=== PATIENT | male | born 1970 | race African-American/Black ===

== ENCOUNTER 2016-11-30 05:20 | Emergency (ER) | payer SELFPAY ==
[~2016-11-30] VITALS: Ht 152.4 cm; Wt 48.0 kg
[~2016-11-30 05:20] MED LIST: ATARAX,VISTARIL25 MG PO; DOXYCYCLINE HY100 MG PO; XANAX0.5 MG PO; ZOLOFT25 MG PO
[2016-11-30 06:48] LABS: EOSINOPHIL (%) 2.4 % (0-5); EOSINOPHIL COUNT 0.1 K/uL (0-0.3); HEMATOCRIT 44.4 % (38.0-50.0); INSTRUMENT ABS NEUTROPHIL CT 1.2 K/uL; MCH 30.4 PG (29.0-34.0); MCHC 33.8 G/DL (30.0-36.0); MCV 90.1 FL (86-99); MEAN PLAT.VOLUME 8.9 uM^3 (9.0-12.4); MONOCYTE COUNT 0.4 K/uL (0-0.8); NEUTROPHIL (%) 31.5 % (45-76); NEUTROPHIL COUNT 1.2 K/uL (1.8-6.4); PLATELET COUNT 220 K/uL (156-360); RBC DIS.WIDTH-CV 12.2 % (11.8-14.6); RBC DIS.WIDTH-SD 40.5 % (39-53); RED BLOOD COUNT 4.93 M/uL (4.00-5.50); WHITE BLOOD COUNT 3.7 K/uL (4.1-10.2)
[2016-11-30 07:29] LABS: ANION GAP 11 MEQ/L (2-14); CHLORIDE 105 MEQ/L (99-109); CREATINE KINASE 258 IU/L (1-294); GFR ESTIMATE (CALCULATED) > 59 mL/min/; GLUCOSE 92 mg/dL (70-99); POTASSIUM 3.9 MEQ/L (3.7-5.4); SAMPLE HEMOLYSIS CHECK 1; SAMPLE ICTERIC CHECK 0; SAMPLE LIPEMIA CHECK 0; SODIUM 143 MEQ/L (136-147); TOTAL CK 258 IU/L (1-294); UREA NITROGEN (BUN) 10 mg/dL (9-23)
[2016-11-30 07:31] LABS: TROP-I INTERPRETATION NEGATIVE; TROPONIN-I < 0.01 ng/mL (0.0-0.30)
[2016-11-30 07:32] LABS: CK-MB 1.1 ng/mL (0.0-4.9)
[2016-11-30 09:27] LABS: AMPHETAMINE NEGATIVE (500 ng/mL); BARBITURATES NEGATIVE (200 ng/mL); BENZODIAZEPINES NEGATIVE (150 ng/mL); COCAINE NEGATIVE (150 ng/mL); INTERNAL CONTROLS VALID? YES; METHADONE NEGATIVE (200 ng/mL); METHAMPHETAMINE NEGATIVE (500 ng/mL); OPIATES (MORPHINE) NEGATIVE (100 ng/mL); OXYCODONE NEGATIVE (100 ng/mL); PHENCYCLIDINE NEGATIVE (25 ng/mL); PROPOXYPHENE NEGATIVE (300 ng/mL); THC CANNABINOIDS NEGATIVE (50 ng/mL); TRICYCLIC ANTIDEPRESSANTS NEGATIVE (300 ng/mL)
[2016-11-30 14:33] VITALS: BP 105/77
== END 2016-11-30 14:34 | disposition home or self-care (01) ==
LOC: EME 05:20
PROVIDERS: Emergency Medicine
DX: F10.129 Alcohol abuse with intoxication, unspecified (principal); F41.9 Anxiety disorder, unspecified; Y90.5 Blood alcohol level of 100-119 mg/100 ml; R42 Dizziness and giddiness
CPT/HCPCS: 70450; 71020; 80048; 82550; 82553; 84484; 85025; 93005; 99281; 99285; G0480

== ENCOUNTER 2016-12-24 22:55 | Emergency (ER) | payer SELFPAY ==
[~2016-12-24] VITALS: Ht 152.4 cm; Wt 55.5 kg
[2016-12-24 23:47] LABS: BASOPHIL COUNT 0.1 K/uL (0-0.1); EOSINOPHIL (%) 0.7 % (0-5); HEMATOCRIT 45.5 % (38.0-50.0); IMMATURE GRANULOCYTE (%) 0.2 % (0.0-0.7); INSTRUMENT ABS NEUTROPHIL CT 1.9 K/uL; LYMPHOCYTE COUNT 1.9 K/uL (1.0-2.8); MCH 30.6 PG (29.0-34.0); MCV 92.9 FL (86-99); MONOCYTE (%) 8.7 % (3-12); MONOCYTE COUNT 0.4 K/uL (0-0.8); NEUTROPHIL (%) 43.7 % (45-76); NEUTROPHIL COUNT 1.9 K/uL (1.8-6.4); PLATELET COUNT 269 K/uL (156-360); RBC DIS.WIDTH-CV 13.4 % (11.8-14.6); RBC DIS.WIDTH-SD 45.8 % (39-53); WHITE BLOOD COUNT 4.3 K/uL (4.1-10.2)
[2016-12-24 23:53] LABS: PROTHROMBIN TIME 11.9 SEC (10.2-12.9)
[2016-12-24 23:56] LABS: PTT 31.3 SEC (25-37)
[2016-12-25] LABS: CHLORIDE 105 mEq/L (99-109); POTASSIUM 3.9 mEq/L (3.7-5.4); SODIUM 144 mEq/L (136-147)
[2016-12-25 00:02] LABS: GLUCOSE 77 mg/dL (70-99)
[2016-12-25 00:04] LABS: ANION GAP 12 MEQ/L (2-14)
[2016-12-25 00:05] LABS: SERUM ETHYL ALCOHOL 338 mg/dL
[2016-12-25 00:06] LABS: GFR ESTIMATE (CALCULATED) > 59 mL/min/
[2016-12-25 00:07] LABS: UREA NITROGEN (BUN) 14 mg/dL (9-23)
[2016-12-25 00:09] LABS: TROP-I INTERPRETATION NEGATIVE; TROPONIN-I < 0.01 ng/mL (0.0-0.30)
[2016-12-25 02:18] LABS: TROP-I INTERPRETATION NEGATIVE; TROPONIN-I < 0.01 ng/mL (0.0-0.30)
[2016-12-25 09:46] VITALS: BP 128/76
[2016-12-25] MEDS ORDERED: LIBRIUM25 MG PO (14:46)
[2016-12-25] MEDS ORDERED: B-1100 MG PO (14:46)
== END 2016-12-25 10:02 | disposition home or self-care (01) ==
LOC: EME → EDBD 22:55 → EME 22:55
PROVIDERS: Emergency Medicine
DX: R07.89 Other chest pain (principal); F10.129 Alcohol abuse with intoxication, unspecified; R11.2 Nausea with vomiting, unspecified; Y90.8 Blood alcohol level of 240 mg/100 ml or more
CPT/HCPCS: 70450; 71010; 80048; 83735; 84484; 85025; 85610; 85730; 93005; 99281; 99285; G0480

== ENCOUNTER 2016-12-25 12:44 | Emergency (ER) | payer SELFPAY ==
[~2016-12-25] VITALS: Ht 172.7 cm; Wt 61.8 kg
[2016-12-25 13:30] LABS: EOSINOPHIL (%) 0.3 % (0-5); HEMATOCRIT 44.7 % (38.0-50.0); IMMATURE GRANULOCYTE (%) 0.3 % (0.0-0.7); INSTRUMENT ABS NEUTROPHIL CT 5.4 K/uL; MCH 30.6 PG (29.0-34.0); MCHC 32.9 G/DL (30.0-36.0); MCV 92.9 FL (86-99); MONOCYTE (%) 5.7 % (3-12); MONOCYTE COUNT 0.4 K/uL (0-0.8); NEUTROPHIL (%) 78.4 % (45-76); NEUTROPHIL COUNT 5.4 K/uL (1.8-6.4); PLATELET COUNT 233 K/uL (156-360); RBC DIS.WIDTH-CV 13.3 % (11.8-14.6); RBC DIS.WIDTH-SD 45.7 % (39-53); RED BLOOD COUNT 4.81 M/uL (4.00-5.50); WHITE BLOOD COUNT 6.9 K/uL (4.1-10.2)
[2016-12-25 13:46] LABS: CHLORIDE 102 mEq/L (99-109); POTASSIUM 3.6 mEq/L (3.7-5.4); SODIUM 138 mEq/L (136-147)
[2016-12-25 13:49] LABS: ANION GAP 16 MEQ/L (2-14)
[2016-12-25 13:51] LABS: SERUM ETHYL ALCOHOL 81 mg/dL
[2016-12-25 13:52] LABS: GFR ESTIMATE (CALCULATED) > 59 mL/min/; UREA NITROGEN (BUN) 11 mg/dL (9-23)
[2016-12-25 13:54] LABS: GLUCOSE 241 mg/dL (70-99)
[2016-12-25 13:54] LABS: TROP-I INTERPRETATION NEGATIVE; TROPONIN-I < 0.01 ng/mL (0.0-0.30)
[2016-12-25] MEDS ORDERED: B-1100 MG PO (14:46)
[2016-12-25] MEDS ORDERED: LIBRIUM25 MG PO (14:46)
[2016-12-25 15:32] VITALS: BP 129/79
== END 2016-12-25 15:40 | disposition home or self-care (01) ==
LOC: EME 12:44
PROVIDERS: Emergency Medicine
DX: F10.239 Alcohol dependence with withdrawal, unspecified (principal); F41.9 Anxiety disorder, unspecified; F10.280 Alcohol dependence with alcohol-induced anxiety disorder; R11.10 Vomiting, unspecified; Y90.4 Blood alcohol level of 80-99 mg/100 ml
CPT/HCPCS: 80048; 84484; 85025; 93005; 99281; 99284; G0480

== ENCOUNTER 2017-01-12 20:24 | Emergency (ER) | payer SELFPAY ==
[~2017-01-12] VITALS: Ht 162.6 cm; Wt 74.9 kg
[~2017-01-12 20:24] MED LIST changes: +B-1100 MG PO; +LIBRIUM25 MG PO
[2017-01-12] MEDS ORDERED: LIBRIUM25 MG PO (20:35)
[2017-01-12 21:20] VITALS: BP 165/95
== END 2017-01-12 21:33 ==
LOC: EME 20:24
DX: F10.239 Alcohol dependence with withdrawal, unspecified (principal); R25.1 Tremor, unspecified; F17.200 Nicotine dependence, unspecified, uncomplicated
CPT/HCPCS: 93005; 99281; 99284; J2250